=== PATIENT | male | born 1980 | race African-American/Black ===

== ENCOUNTER 2021-11-05 11:26 | Emergency (ER) | payer MEDICAID ==
[~2021-11-05] VITALS: Ht 175.3 cm; Wt 69.0 kg
[2021-11-05] MEDS ORDERED: KETOROLAC 60MG/2ML VIAL IM ONE (11:45)
[2021-11-05] MEDS ORDERED: IBUPROFEN 400MG TABLET PO ONE (14:15)
[2021-11-05 14:34] VITALS: BP 125/80
== END 2021-11-05 15:37 | disposition left against medical advice (07) ==
LOC: ER 11:26
DX: R07.89 Other chest pain (principal); Z87.81 Personal history of (healed) traumatic fracture; V43.52XA Car driver injured in collision with other type car in traffic accident, initial encounter; Y93.89 Activity, other specified; Y92.488 Other paved roadways as the place of occurrence of the external cause
CPT/HCPCS: 70450; 71046; 93005; 99285; J1885; Z7610